=== PATIENT | female | born 1960 | race Caucasian/White ===

== ENCOUNTER 2018-04-30 10:17 | Emergency (ER) | payer OTHER ==
[~2018-04-30] VITALS: Ht 177.8 cm; Wt 58.5 kg
--- NOTE | ~2018-04-30 | EKG ---
[place] [address] [facility] [place] [address] ELECTROCARDIOGRAM REPORT Name: ISRAEL LOPEZ Room #: DEP [facility]#: [id number] Admission: 04/30/18 Attend Phys: Discharge: 04/30/18 Date of : 60 Report #: [id number] THIS REPORT FOR: //name// [facility] ED Test Date: 2018-04-30 Test Time: 10:34:37 Pat Name: ISRAEL LOPEZ Department: Room: Gender: F [employer] Toolsetter: KRISSY : 1960 Requested By: Paul Wyman Order Number: [id number] MD: Kedar Pepper Measurements Intervals Novelty Rate: 58 P: -29 ND: 144 QRS: 71 QRSD: 96 T: 59 QT: 416 QTc: 409 Interpretive Statements Sinus bradycardia Otherwise no significant abnormality Compared to ECG 08/09/2005 10:49:39 No significant change was found Electronically Signed On 05-01-2018 8:38:01 [employer] by Kedar Pepper [email or web address] <ELECTRONICALLY SIGNED> By: Kedar Pepper MD, [facility] 05/01/18 0838 1034 1034 Kedar Pepper MD, FACC /EPI
[2018-04-30] MEDS ORDERED: NOHOMEMEDICATIONS (10:35)
[2018-04-30 10:52] LABS: BASOPHILS 0.7 % (0.0-2.0); EOSINOPHILS 2.2 % (0.0-3.0); HEMATOCRIT 34.9 % (37.0-47.0); LYMPHOCYTES 29.2 % (24.0-44.0); MCH 29.5 pg (26.0-34.0); MCHC 34.3 g/dL (28.0-37.0); MCV 86.1 fL (80.0-100.0); MONOCYTES 7.3 % (1.0-8.0); PLATELET COUNT 246 thou/uL (150-400); POLYS 60.6 % (36.0-66.0); RBC 4.05 mil/uL (4.20-5.00); RDW 13.8 % (10.5-14.5); WBC 6.5 thou/uL (4.0-11.0)
[2018-04-30 11:04] LABS: ANION GAP 7 mmol/L (7-16); BUN 19 mg/dL (7-18); CALCIUM 9.6 mg/dL (8.5-10.1); CHLORIDE 103 mmol/L (98-107); CO2 27 mmol/L (21-32); CREATININE 0.8 mg/dL (0.6-1.0); GLUCOSE 98 mg/dL (74-106); POTASSIUM 3.9 mmol/L (3.5-5.1); SODIUM 137 mmol/L (136-145)
[2018-04-30 11:12] LABS: ALBUMIN 3.9 g/dL (3.4-5.0); MAGNESIUM 2.1 mg/dL (1.8-2.4); SGOT 21 U/L (15-37); SGPT 25 U/L (30-65); TOTAL BILIRUBIN 0.5 mg/dL (<0.1-1.0); TOTAL PROTEIN 7.2 g/dL (6.4-8.2); TROPONIN-I <0.06 ng/mL (<0.06)
[2018-04-30 12:22] LABS: AMP/METHAMP Negative (Negative); BARBITURATES Negative (Negative); BENZODIAZEPINES Negative (Negative); COCAINE Negative (Negative); METHADONE Negative (Negative); OPIATES Negative (Negative); PCP Negative (Negative)
[2018-04-30 13:09] VITALS: BP 116/76
== END 2018-04-30 13:09 | disposition home or self-care (01) ==
LOC: ER 10:17
PROVIDERS: Emergency Medicine
DX: R07.89 Other chest pain (principal); R11.0 Nausea; Z90.13 Acquired absence of bilateral breasts and nipples; Z90.710 Acquired absence of both cervix and uterus; Z85.3 Personal history of malignant neoplasm of breast